=== PATIENT | female | born 1955 | race Caucasian/White ===

== ENCOUNTER 2023-05-03 09:09 | Outpatient (OUT) | payer MEDICARE, SELFPAY ==
--- NOTE | 2023-05-03 09:57 | CT_ITS ---
[address] [address] Patient Name: MAU SCHILLING MRN: [id number] date: 1955 Sex: F Assigned Patient Location: CT Current Patient Location: Accession/Order Number: [id number] Exam Date: 05/03/2023 09:50 Report Date: 05/04/2023 09:03 At the request of: NON-STAFF PHYSICIAN Procedure: CT chest w con EXAMINATION: CT chest w con HISTORY: Malignant Gastrointestinal Tumor Of Stomach C49.A2 ; acute right lower lateral rib pain for one week COMPARISON: PET/CT 08/08/2021 TECHNIQUE: Multi-planar CT images were obtained without and/or with IV contrast as indicated by examination type. Axial, Coronal, and Sagittal images. Dose reduction techniques were achieved by using automated exposure control and/or adjustment of mA and/or kV according to patient size and/or use of iterative reconstruction technique. FINDINGS: LUNGS: Numerous pulmonary nodules and masses with all/majority having increased in size; the greatest increase in size pertains to a 3.9 cm mass (previously 1.5 cm) within left upper and lower lobe abutting the lateral wall of the distal aortic arch. The largest mass within the lungs is within the right posterior lung base, 5.1 cm. PLEURA: No mass, effusion, or pneumothorax. VASCULATURE: No abnormality. LAZARO: Left perihilar mass versus enlarged lymph nodes. MEDIASTINUM: Heterogeneously enhancing subcarinal lymph node enlargement 3.4 cm pretracheal lymph node; increased in size and suspicious for metastatic disease. Increase in size of the 2.4 cm mass versus abnormal lymph node anterior lateral to the heart adjacent the pericardium and diaphragm. CARDIAC: No enlargement, pericardial thickening, or significant calcification. AORTA: No aneurysm or dissection. CHEST WALL: New 6 mm nodule versus dense lymph node within left axilla. BONES: Progression of destructive osseous lesion involving posterior right fifth rib and likely a nondisplaced pathologic fracture. New lesion involving anterior lateral left seventh rib. LIMITED ABDOMEN: Multiple early enhancing lesions within the liver, largest is 1.9 cm, suspicious for metastatic disease. Prior partial resection of right hepatic lobe. Several low-density heterogeneously enhancing lesions within the upper abdominal fat suspected represent metastatic disease; largest is anterior to the right kidney, 7.7 cm. Limited images of the upper abdomen. OTHER: Negative. CT/CT chest w con IMPRESSION: 1. Progression of metastatic disease within the lungs, mediastinum, visualized upper abdomen, and ribs. Electronically authenticated by: CLIFFORD CHOWDHURY Date: 05/04/2023 09:03
== END 2023-05-03 09:10 | disposition home or self-care (01) ==
LOC: CT 09:15
PROVIDERS: PCP Internal Medicine
DX: C49.A2 Gastrointestinal stromal tumor of stomach (principal)
CPT/HCPCS: 71260; Q9967